=== PATIENT | male | born 1930 | race Caucasian/White ===

== ENCOUNTER 2017-05-08 15:12 | Outpatient (CLI) | payer MEDICARE | END 2017-05-08 15:13 | disposition home or self-care (01) | LOC: BICRAD 15:12 | PROVIDERS: ATTEND Internal Medicine | DX: M94.0 Chondrocostal junction syndrome [Tietze] (principal); I70.0 Atherosclerosis of aorta | CPT/HCPCS: 71046 ==

== ENCOUNTER 2017-12-26 13:00 | Emergency (ER) | payer MEDICARE ==
[2017-12-26] MEDS ORDERED: Metoclopramide HCl 10 MG/2 ML VIAL ONE (14:26)
[2017-12-26] MEDS ORDERED: diphenhydrAMINE 50 MG/ML VIAL ONE (14:26)
--- NOTE | 2017-12-26 15:37 | CT ---
CT CERVICAL SPINE: Date: 12/26/17 PROVIDED CLINICAL HISTORY: Neck pain. FINDINGS: There is no evidence for fracture or traumatic subluxation. Cervical degenerative changes are seen. N o prevertebral soft tissue swelling apparent. The visualized lung apices appear clear. IMPRESSION: No evidence for fracture or traumatic subluxation. POS: [facility]
--- NOTE | 2017-12-26 15:39 | CT ---
HEAD CT WITHOUT CONTRAST: 12/26/17 HISTORY: Headache. COMPARISON: 07/04/16. TECHNIQUE: Noncontrast head CT is performed from skull base to skull vertex. FINDINGS: No parenchymal hemorrhage. No extra-axial hematoma. No midline shift. Basilar cisterns are patent. Ag e appropriate atrophy. Cortical michael-white matter differentiation is preserved. Ventricles and sulci are stable. White matter hypodensities due to chronic small vessel ischemic changes are identified. 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 Stable hypoatt enuation inferior to the left lentiform nucleus and the left subinsular and right subinsular white ma tter. The calvarium is intact. Adequate aeration of the sinuses and mastoid air cells. Cavernous carotid at herosclerosis. IMPRESSION: 1. No acute intracranial process. 2. Age appropriate atrophy. 3. Chronic small vessel ischemic changes of the white matter. POS: [facility]
== END 2017-12-26 16:30 | disposition home or self-care (01) ==
LOC: ERS 13:00
DX: R51 Headache (principal); E78.5 Hyperlipidemia, unspecified; Z79.899 Other long term (current) drug therapy
CPT/HCPCS: 70450; 72125; 96365; 96366; 96375; J1200; J2765